=== PATIENT | female | born 1980 | race Caucasian/White ===

== ENCOUNTER 2017-07-19 08:43 | Day surgery (SDC) | payer OTHER ==
[2017-07-19] MEDS: POLYMYXIN/BACITRACIN 1L IRRIG IRR
[2017-07-19] MEDS: BUPIVACAINE 0.5% (SDV) 30 ML INJ
[~2017-07-19 08:43] MED LIST: LIDOCAINE 2% (SDV) 5 ML INJ; ROCURONIUM 50 MG INJ
[2017-07-19] MEDS ORDERED: MEPERIDINE 25 MG INJ IV (09:30)
[2017-07-19] MEDS ORDERED: KETOROLAC 30 MG INJ IV (09:30)
[2017-07-19] MEDS ORDERED: MIDAZOLAM 1 MG/ML 2 ML INJ IV (09:30)
[2017-07-19] MEDS ORDERED: ALBUTEROL 0.083% (NEB) 2.5 MG/3 ML AMP HHN (09:30)
[2017-07-19] MEDS ORDERED: hydrALAzine 20 MG INJ IV (09:30)
[2017-07-19] MEDS ORDERED: DIPHENHYDRAMINE 50 MG INJ IV (09:30)
[2017-07-19] MEDS ORDERED: FENTAnyl 50 MCG/ML VIAL IV ×3 (09:30)
[2017-07-19] MEDS ORDERED: HYDROmorphONE (0.2 MG/ML) 10ML SYG IV ×3 (09:30)
[2017-07-19] MEDS ORDERED: OXYCODONE/ACETAMINOPHEN (5/325) TAB PO ×2 (09:30)
[2017-07-19] MEDS ORDERED: ONDANSETRON 4 MG INJ IV (09:30)
[2017-07-19] MEDS ORDERED: LABETALOL HCL 20MG INJ IV (09:30)
[2017-07-19] MEDS ORDERED: EPHEDrine SULFATE 50 MG/5 ML SYG IV (09:30)
[2017-07-19] MEDS ORDERED: PROPOFOL 40 ML (10:36)
[2017-07-19] MEDS ORDERED: FENTAnyl 50 MCG/ML VIAL (10:38)
[2017-07-19] MEDS ORDERED: MIDAZOLAM 1 MG/ML 2 ML INJ (10:49)
[2017-07-19] MEDS ORDERED: DEXAMETHASONE 4 MG/ML 1 ML INJ (10:56)
[2017-07-19] MEDS ORDERED: ONDANSETRON 4 MG INJ (10:57)
[2017-07-19] MEDS ORDERED: CEFAZOLIN 1 GM INJ (10:58)
[2017-07-19] MEDS: LIDOCAINE 2% (MDV) 20 ML INJ (11:23)
[2017-07-19] MEDS ORDERED: KETOROLAC 30 MG INJ (11:43)
[2017-07-19] MEDS: METOCLOPRAMIDE 10 MG INJ IV (12:28)
== END 2017-07-19 14:15 | disposition home or self-care (01) ==
LOC: SDS 08:43
DX: D18.01 Hemangioma of skin and subcutaneous tissue (principal)
CPT/HCPCS: 11426; 84703; 87070; 87075; 88307